=== PATIENT | male | born 1955 | race Two or more races ===

== ENCOUNTER 2021-04-22 22:22 | Inpatient (IN) | payer SELFPAY ==
[~2021-04-22] VITALS: Ht 167.6 cm; Wt 81.8 kg
[2021-04-22] MEDS ORDERED: ASPI-989 PO (22:53)
[2021-04-22] MEDS ORDERED: ASCO500 PO (22:53)
[2021-04-22] MEDS ORDERED: CALC-1038 PO (22:53)
[2021-04-22] MEDS ORDERED: OMEG-135 PO (22:53)
[2021-04-23] VITALS (24 sets, daily range): BP systolic 102–135; BP diastolic 50–77
[2021-04-23 00:14] LABS: MEAN CORPUSCULAR HEMOGLOBIN 16.1 pg (26.0-34.0); MEAN CORPUSCULAR HGB CONC 27.5 G/dL (31.0-37.0); MEAN CORPUSCULAR VOLUME 59 fL (80-100); PLATELET COUNT (AUTO) 402 K/uL (150-450); RED BLOOD CELL COUNT(AUTO) 2.98 MIL/uL (4.50-5.90); RED CELL DISTRIBUTION WIDTH 22.5 % (11.5-14.5)
[2021-04-23 00:21] LABS: HEMATOCRIT 17.4 % (41-53); HEMOGLOBIN 4.8 g/dL (13.5-17.5)
[2021-04-23 00:22] LABS: PROTHROMBIN TIME 10.8 SEC (9.4-11.6)
[2021-04-23 00:28] LABS: ANION GAP 9 mmol/L (8-16); CALCIUM, TOTAL 8.9 mg/dL (8.8-10.5); CARBON DIOXIDE 26 mmol/L (22-29); CHLORIDE 108 mmol/L (98-107); CREATININE 1.02 mg/dL (0.60-1.30); GLOMERULAR FILTR. RATE CALC > 60 mL/min (>60); GLUCOSE,RANDOM 108 mg/dL (70-110); POTASSIUM 4.4 mmol/L (3.5-5.1); SODIUM SERUM 143 mmol/L (136-145); UREA NITROGEN, BLOOD 18 mg/dL (7-18)
[2021-04-23 00:33] LABS: ALANINE AMINOTRANSFERASE 33 U/L (12-78); ALBUMIN 3.7 g/dL (3.4-5.0); ALKALINE PHOSPHATASE 104 U/L (46-116); ASPARTATE AMINOTRANSFERASE 26 U/L (15-37); BILIRUBIN,TOTAL 0.3 mg/dL (0.1-1.0); TOTAL PROTEIN, SERUM 6.9 g/dL (6.4-8.2)
[2021-04-23] MEDS ORDERED: SODIUM CHLORIDE 0.9% 1,000 ML ONE (00:56)
[2021-04-23 01:19] LABS: BAND NEUTROPHILS % (MANUAL) 0 % (0-5)
[2021-04-23 01:20] LABS: EOSINOPHILS % (MANUAL) 3 % (1-6); LYMPHOCYTES % (MANUAL) 26 % (22-44); MONOCYTES % (MANUAL) 7 % (2-9); SEGMENTED NEUTROPHILS % 64 % (40-70)
[2021-04-23] MEDS ORDERED: ONDANSETRON HCL 4 MG/2 ML VIAL IVP PRN ×2 (04:00→13:00)
[2021-04-23] MEDS ORDERED: ACETAMINOPHEN 325 MG TABLET PO PRN ×2 (04:00→13:00)
[2021-04-23] MEDS ORDERED: 0.9% SODIUM CHLORIDE 10 ML SYRINGE IVP PRN (04:00)
[2021-04-23 06:06] LABS: COVID AG,FIA SOURCE NASOPHARYNGEAL
[2021-04-23] MEDS ORDERED: ZOLPIDEM TARTRATE 5 MG TABLET PO PRN (13:00)
[2021-04-23] MEDS ORDERED: BISACODYL 10 MG RECTAL RECTAL SUPPOSITORY PR PRN (13:00)
[2021-04-23] MEDS ORDERED: MORPHINE SULFATE 2 MG/ML SYRINGE IVP PRN (13:00)
[2021-04-23] MEDS ORDERED: HYDROCODONE/ACETAMINOPHEN 5-325 MG TABLET PO PRN (13:00)
[2021-04-23] MEDS ORDERED: MAGNESIUM HYDROXIDE SUSPENSION 30 ML UDCUP PO PRN (13:00)
[2021-04-23] MEDS ORDERED: DOCUSATE SODIUM 100 MG CAPSULE PO SCH (21:00)
[2021-04-24] MEDS ORDERED: PANTOPRAZOLE SODIUM 40 MG DR TABLET PO SCH (09:00)
== END 2021-04-23 16:48 | disposition home or self-care (01) | DRG 812 ==
LOC: EMS 22:22 → ICU 04-23 08:42 → 4E 04-23 09:02
PROVIDERS: ADMIT Internal Medicine; ATTEND Internal Medicine
PROC: 30233N1 Transfusion of Nonautologous Red Blood Cells into Peripheral Vein, Percutaneous Approach (ICD-10-PCS; principal; 2021-04-23)
DX: D50.9 Iron deficiency anemia, unspecified (principal); K92.2 Gastrointestinal hemorrhage, unspecified; E78.00 Pure hypercholesterolemia, unspecified; R19.5 Other fecal abnormalities; Z20.822 Contact with and (suspected) exposure to COVID-19; E78.5 Hyperlipidemia, unspecified; Z83.3 Family history of diabetes mellitus; Z79.899 Other long term (current) drug therapy
CPT/HCPCS: 36430; 80053; 82271; 85025; 85610; 85730; 86850; 86900; 86901; 86923; 99285; G0378; J7030; P9016